=== PATIENT | female | born 1985 | race African-American/Black ===

== ENCOUNTER 2019-12-31 13:28 | Emergency (ER) | payer SELFPAY ==
[~2019-12-31] VITALS: Ht 167.6 cm; Wt 57.7 kg
[2019-12-31] MEDS ORDERED: FAMOTIDINE 20MG/2ML VIAL IV STA (13:57)
[2019-12-31] MEDS ORDERED: ONDANSETRON HCL 4MG/2ML INJ IV STA (13:57)
[2019-12-31] MEDS ORDERED: SODIUM CHLORIDE 0.9% 1,000 ML IV ONE (13:57)
[2019-12-31] MEDS ORDERED: LORAZEPAM 2MG/ML CPJ IV ONE (14:15)
[2019-12-31 14:41] LABS: BASOPHILS % 0.3 % (0.0-2.0); HEMATOCRIT. 40.3 % (36.0-48.0); HEMOGLOBIN. 13.9 g/dL (12.0-16.0); LYMPHOCYTES % 14.5 % (20.0-50.0); MEAN CORPUSCULAR HEMOGLOBIN 34.7 pg (28.0-32.0); MEAN CORPUSCULAR VOLUME 100.9 fL (81.0-99.0); MEAN PLATELET VOLUME 8.5 fl (7.4-10.4); MONOCYTES % 3.9 % (2.0-8.0); NEUTROPHILS % 81.3 % (40.0-76.0); PLATELET 289 x1000/uL (130-400); RED CELL DISTRIBUTION WIDTH 13.2 % (11.6-14.6)
[2019-12-31 14:47] LABS: CHLORIDE 107 mEq/L (98-107)
[2019-12-31 14:50] LABS: INR 1.1; PROTHROMBIN TIME 11.1 sec (9.6-11.0)
[2019-12-31 14:51] LABS: ETHANOL BLOOD < 10 mg/dL
[2019-12-31] MEDS ORDERED: METOCLOPRAMIDE HCL 10MG/2ML VIAL IV ONE (17:00)
[2019-12-31 17:17] LABS: CLARITY URINE CLEAR (CLEAR); COLOR URINE YELLOW (YELLOW); KETONES URINE 2+ (NEGATIVE); LEUKOCYTE ESTERASE URINE NEGATIVE (NEGATIVE); NITRITE URINE NEGATIVE (NEGATIVE); OCCULT BLOOD URINE NEGATIVE (NEGATIVE); PH URINE 7.5 (4.5-8.0); PROTEIN URINE 1+ (NEGATIVE); SPECIFIC GRAVITY URINE 1.021 (1.005-1.030); UROBILINOGEN URINE 0.2 E.U./dL (0.2-1.0)
[2019-12-31 17:29] LABS: *AMPHETAMINES SCREEN URINE NEGATIVE (NEGATIVE)
[2019-12-31 17:32] LABS: *BENZODIAZEPINES SCREEN URINE NEGATIVE (NEGATIVE)
[2019-12-31 17:33] LABS: *BARBITURATES SCREEN URINE NEGATIVE (NEGATIVE); METHADONE URINE SCREEN NEGATIVE (NEGATIVE); OPIATES URINE SCREEN NEGATIVE (NEGATIVE)
[2019-12-31 17:35] LABS: PHENCYCLIDINE URINE SCREEN NEGATIVE (NEGATIVE)
[2019-12-31 17:36] LABS: *COCAINE SCREEN URINE NEGATIVE (NEGATIVE)
[2019-12-31 17:41] LABS: CANNABINOID URINE SCREEN PRESUMTIVE POSITIVE (NEGATIVE)
[2019-12-31 18:20] VITALS: BP 106/82
== END 2019-12-31 19:23 | disposition home or self-care (01) ==
LOC: ER 13:37
DX: R10.9 Unspecified abdominal pain (principal); R11.10 Vomiting, unspecified; K21.9 Gastro-esophageal reflux disease without esophagitis; F12.10 Cannabis abuse, uncomplicated
CPT/HCPCS: 36415; 71045; 80053; 80305; 80320; 81003; 83690; 84484; 85025; 85610; 93005; 96361; 96374; 96375; 99285; J2060; J2405; J2765; J3490; J7030; G0480

== ENCOUNTER 2022-11-16 17:53 | Emergency (ER) | payer MEDICAID, OTHER ==
[~2022-11-16] VITALS: Ht 165.1 cm; Wt 59.0 kg
[2022-11-16 18:03] VITALS: BP 155/92; PULSE 65; RESP 18; TEMP 98.2; O2SAT 99
[2022-11-16 19:39] LABS: HEMATOCRIT. 41.9 % (36.0-48.0); HEMOGLOBIN. 14.3 g/dL (12.0-16.0); MEAN CORPUSCULAR VOLUME 99.7 fL (81.0-99.0); MEAN PLATELET VOLUME 8.3 fl (7.4-10.4); PLATELET 349 x1000/uL (130-400)
[2022-11-16 19:47] LABS: CHLORIDE 106 mEq/L (98-107)
[2022-11-16 19:55] LABS: B-HCG QUANTITATIVE < 1 mIU/mL (<3)
[2022-11-16 21:36] LABS: PLATELET ESTIMATE NORMAL
== END 2022-11-17 02:15 | disposition left against medical advice (07) ==
LOC: ER 18:09
DX: R11.2 Nausea with vomiting, unspecified (principal)
CPT/HCPCS: 36415; 80053; 84702; 85025; 99283